=== PATIENT | male | born 1950 | race Caucasian/White ===

== ENCOUNTER 2018-08-27 12:13 | Emergency (ER) | payer OTHER, BC ==
[2018-08-27 12:19] VITALS: TEMP 97.6; BMI 29.2
--- NOTE | 2018-08-27 12:57 | PDOC ---
History of Present Illness - General Chief Complaint: Lightheaded Stated Complaint: DIZZY Time Seen by Provider: 08/27/18 12:51 - History of Present Illness Initial Comments: 08/27/18 14:09 Chief complaint: Unsteadiness of gait History of present illness: Upon awakening this morning, patient felt "dizzy" no denies jamison vertigo. He also noted that he was mildly nauseated and unsteady on his feet, although he did not vomit. Review of systems: Admits nasal congestion and the feeling that he is "getting a cold". Denies earache, tinnitus, ear congestion, or decreased hearing. Denies cough, chest pain, shortness of breath, abdominal pain, vomiting or diarrhea, visual or focal neurologic symptoms. Remainder systems reviewed and found to be negative Past medical history: HI in 2003, followed by a editorial intern, stable cardiac status since then. No stent or CABG. Elevated cholesterol. High blood pressure, although he recently lost 30 pounds by diet and his blood pressure reportedly has normalized. No known diabetes. Social history: Active, drives a school bus, no tobacco, one or 2 glasses of wine every evening, no nonprescription drugs. Walks a mile a day without difficulty Family history: Reviewed and significant for coronary artery disease, otherwise noncontributory Physical exam: Alert and oriented well-developed well-nourished no acute distress at rest. Cheerful and cooperative Afebrile, vital signs normal Head atraumatic. PERRLA 4 mm, fundi benign with sharp disc margins and good central venous pulsations. ENT clear except for mild nasal congestion. No sinus tenderness Neck supple without bruit mass or nodes Lungs clear to P&A full breath sounds bilaterally no wheezes rales or rhonchi CV S1 and S2 distant, regular, without murmur rub or gallop, pulses full and symmetric, no JVD or edema, no bruits Abdomen soft nontender without mass or organomegaly Neurological C2 to 12 intact. Strength full and symmetric. No focal sensory or motor deficits. Cerebellum intact. Gait appears stable and unimpaired Impression: Vague neurological symptoms most consistent with labyrinthitis associated with URI, however, central nervous system or cardiac disease are possibilities Plan: EKG and enzymes, head CT, CBC chemistries, symptomatic treatment and observation. Further treatment depending on results of studies. Past History - Past Medical History Allergies/Adverse Reactions: Allergies Allergy/AdvReac Type Severity Reaction Status Date / Time guaifenesin [From Robitussin] Allergy Verified 08/27/18 12:14 Home Medications: Ambulatory Orders Atorvastatin Ca [Lipitor] 20 mg PO HS 08/27/18 Carvedilol [Coreg] 6.25 mg PO BID 08/27/18 Meclizine HCl 25 mg PO TID PRN #12 tab.chew 08/27/18 Quinapril HCl 0 mg PO DAILY 08/27/18 COPD: No Hypercholesterolemia: Yes - Suicide/Smoking/Psychosocial Hx Smoking History: Former smoker Have you smoked in the past 12 months: No Information on smoking cessation initiated: No Hx Alcohol Use: Yes Drug/Substance Use Hx: No Substance Use Type: Alcohol Cardiac Specific PMH - Complaint Specific PMHX Myocardial Infarction: Yes *Physical Exam - Vital Signs Last Vital Signs Temp Pulse Resp BP Pulse Ox 97.6 F 71 18 106/72 97 08/27/18 12:14 08/27/18 14:36 08/27/18 13:18 08/27/18 14:36 08/27/18 14:36 ED Treatment Course - LABORATORY CBC & Chemistry Diagram: 08/27/18 13:06 08/27/18 13:04 - ADDITIONAL ORDERS Additional order review: Laboratory Results 08/27/18 08/27/18 08/27/18 13:04 13:04 13:04 PT with INR 12.3 INR 1.10 Sodium 135 L Potassium 3.6 Chloride 102 Carbon Dioxide 25 Anion Gap 8 BUN 25 H Creatinine 0.7 Creat Clearance w eGFR > 60 Random Glucose 115 H Calcium 8.8 Total Bilirubin 1.0 AST 33 ALT 42 H Alkaline Phosphatase 68 Creatine Kinase 272 Creatine Kinase Index 4.8 CK-MB (CK-2) 13.3 H Troponin I < 0.03 Total Protein 6.6 Albumin 3.7 08/27/18 13:06 RBC 4.96 MCV 91.3 MCHC 33.3 RDW 12.7 MPV 10.1 Neutrophils % 59.9 Lymphocytes % 26.8 Monocytes % 10.6 H Eosinophils % 2.3 Basophils % 0.4 - RADIOLOGY Radiology Studies Ordered: Category Date Time Status HEAD CT WITHOUT CONTRAST [CT] Stat CT Scan 08/27/18 13:45 Completed CHEST X-RAY PORTABLE* [RAD] Stat Radiology 08/27/18 13:02 Completed - Medications Given in the ED: ED Medications Discontinued Medications Generic Name Dose Route Start Last Admin Trade Name Freq PRN Reason Stop Dose Admin Aspirin 81 mg 08/27/18 13:11 08/27/18 13:18 Asa - PO 08/27/18 13:12 81 mg ONCE ONE Administration Meclizine HCl 25 mg 08/27/18 13:45 08/27/18 13:55 Antivert - PO 08/27/18 13:46 25 mg ONCE ONE Administration Nitroglycerin 0.4 mg 08/27/18 13:11 08/27/18 13:18 Nitrostat - SL 08/27/18 13:12 0.4 mg ONCE ONE Administration Ondansetron HCl 4 mg 08/27/18 13:03 08/27/18 13:13 Zofran Injection IVPB 08/27/18 13:04 4 mg ONCE ONE Administration Medical Decision Making - Medical Decision Making 08/27/18 15:29 EKG reviewed: Normal sinus rhythm 78/m. Right bundle branch block, left anterior fascicular block, possible old inferior wall HI. No interval change as compared to prior EKG dated 05/28/2018 obtained from primary physician. Chest x-ray clear CBC and chemistries without significant abnormalities, including cardiac enzymes. Symptoms resolved completely after administration of meclizine. Patient fully ambulatory, gait stable and unimpaired. No dizziness or vertigo. No chest pain or shortness of breath. Most likely diagnosis is labyrinthitis associated with URI, but in view of cardiac history, patient is instructed to rest, return to ER immediately if further symptoms develop, and to check with primary physician and editorial intern within 2 days. *DC/Admit/Observation/Transfer Diagnosis at time of Disposition: Acute viral labyrinthitis Qualifiers: Laterality: unspecified laterality Qualified Code(s): H83.09 - Labyrinthitis, unspecified ear - Discharge Dispostion Disposition: HOME Condition at time of disposition: Improved Decision to Admit order: No - Prescriptions Prescriptions: Meclizine HCl 25 mg PO TID PRN #12 tab.chew PRN Reason: vertigo, unsteady gait - Referrals Referrals: Jean-Claude Mar MD [Primary Care Provider] - 2 Days - Patient Instructions Printed Discharge Instructions: DI for Labyrinthitis Additional Instructions: If symptoms worsen or additional symptoms develop, return to the hospital immediately Rest and medication until symptoms resolve. - Post Discharge Activity Forms/Work/School Notes: Back to Work
[2018-08-27] MEDS ORDERED: ONDANSETRON 4 MG/2 ML VIAL IVPB ONE (13:03)
[2018-08-27] MEDS ORDERED: ONDANSETRON 4 MG/2 ML VIAL ONE (13:06)
[2018-08-27] MEDS ORDERED: NITROGLYCERIN SUBLINGUAL 1/150 0.4 MG TAB SL ONE (13:11)
[2018-08-27] MEDS ORDERED: ASPIRIN 81 MG CHEWABLE TABLETS PO ONE (13:11)
[2018-08-27] MEDS ORDERED: ASPIRIN 81 MG CHEWABLE TABLETS ONE (13:14)
[2018-08-27] MEDS ORDERED: NITROGLYCERIN SUBLINGUAL 1/150 0.4 MG TAB ONE (13:14)
[2018-08-27 13:25] LABS: INR 1.1 (0.82-1.09); PROTHROMBIN TIME (PATIENT) 12.3 SEC (10.2-13.0)
[2018-08-27 13:30] LABS: ALBUMIN 3.7 g/dl (3.5-5.0); ALK PHOS 68 U/L (32-92); ANION GAP 8 MMOL/L (8-16); BLOOD UREA NITROGEN 25 mg/dl (7-18); CALCIUM 8.8 mg/dl (8.4-10.2); CHLORIDE 102 mmol/L (98-107); CO2 25 mmol/L (22-28); CREATININE 0.7 mg/dl (0.6-1.3); GLUCOSE,RANDOM 115 mg/dl (74-106); POTASSIUM 3.6 mmol/L (3.5-5.1); SGOT/AST 33 U/L (10-42); SGPT/ALT 42 U/L (10-40); SODIUM 135 mmol/L (136-145); TOT PROT 6.6 g/dl (6.4-8.3)
[2018-08-27 13:33] LABS: BASO % 0.4 % (0-2.0); EOS % 2.3 % (0-4.5); HEMATOCRIT 45.3 % (35.4-49); HEMOGLOBIN 15.1 GM/dl (11.7-16.9); LYMPH % 26.8 % (8-40); MCH 30.4 pg (25.7-33.7); MCHC 33.3 g/dl (32.0-35.9); MEAN CELL VOLUME 91.3 fl (80-96); MEAN PLT VOLUME 10.1 fl (7.5-11.1); MONO % 10.6 % (3.8-10.2); NEUT % 59.9 % (42.8-82.8); PLATELET COUNT 163 K/MM3 (134-434); RBC 4.96 M/mm3 (4.00-5.60); RDW 12.7 % (11.9-15.9)
[2018-08-27] MEDS ORDERED: MECLIZINE HCL 25 MG TABLET (FP) PO ONE (13:45)
[2018-08-27] MEDS ORDERED: MECLIZINE HCL 25 MG TABLET (FP) ONE (13:52)
[2018-08-27 14:37] VITALS: BP 106/72; PULSE 71
--- NOTE | 2018-08-28 11:54 | EKG ---
Test Reason : Blood Pressure : / mmHG Vent. Rate : 076 BPM Atrial Rate : 076 BPM P-R Int : 184 ms QRS Dur : 144 ms QT Int : 432 ms P-R-T Axes : 054 -52 011 degrees QTc Int : 486 ms NORMAL SINUS RHYTHM RIGHT BUNDLE BRANCH BLOCK LEFT ANTERIOR FASCICULAR BLOCK BIFASCICULAR BLOCK CANNOT RULE OUT INFERIOR INFARCT (CITED ON OR BEFORE 27-AUG-2018) ABNORMAL ECG WHEN COMPARED WITH ECG OF 27-AUG-2018 12:23, NO SIGNIFICANT CHANGE WAS FOUND Confirmed by YASMEEN ROCHA MD ([id number]) on 08/28/2018 11:54:42 AM Referred By: YESSENIA SERNA Confirmed By:YASMEEN ROCHA MD
== END 2018-08-27 15:11 | disposition home or self-care (01) ==
LOC: FER 12:13
PROC: 3E033GC Introduction of Other Therapeutic Substance into Peripheral Vein, Percutaneous Approach (ICD-10-PCS; principal; 2018-08-27)
DX: H83.09 Labyrinthitis, unspecified ear (principal); Z87.891 Personal history of nicotine dependence
CPT/HCPCS: 36415; 70450-TC; 71045-TC-FY; 80053; 82550; 82553; 84484; 85025; 85610; 93005; 96374; 99283-25

== ENCOUNTER 2019-10-22 06:08 | Day surgery (SDC) | payer OTHER ==
[2019-10-22] MEDS ORDERED: LIDOCAINE HCL 1%, 10 MG/ML (20ML VIAL) ONE (07:17)
[2019-10-22] MEDS ORDERED: PROPOFOL 20 ML ONE (07:27)
[2019-10-22] MEDS ORDERED: MIDAZOLAM HCL 2 MG/2 ML SINGLE DOSE VIAL ONE (07:27)
[2019-10-22] MEDS ORDERED: DEXAMETHASONE SOD PHOSPHATE 4 MG/1 ML VIAL ONE (07:28)
[2019-10-22] MEDS ORDERED: ceFAZolin SODIUM 1 GM VIAL ONE (07:28)
[2019-10-22 07:58] VITALS: BMI 29.5
--- NOTE | 2019-10-22 08:04 | HP ---
[facility] - Chief Complaint Chief Complaint: right hand pain - Past Medical History Allergies/Adverse Reactions: Allergies Allergy/AdvReac Type Severity Reaction Status Date / Time guaifenesin [From Keatonsin] Allergy Verified 10/22/19 06:41 - Current Medications Current Medications: Home Medications Medication Instructions Recorded Atorvastatin Ca [Lipitor] 20 mg PO HS 08/27/18 Carvedilol [Coreg] 12.5 mg PO BID 08/27/18 Quinapril HCl 40 mg PO DAILY 08/27/18 Ascorbic Acid [Vitamin C Oral 500 mg PO DAILY 10/21/19 Solution -] Aspirin 81 mg PO DAILY 10/21/19 Cholecalciferol (Vitamin D3) 1,000 unit PO DAILY 10/21/19 [Vitamin D3 -] Vitamin E 400 unit PO DAILY 10/21/19 [facility]ellite Physical Exam - Physical Examination Vital Signs: Vital Signs Period Temp Pulse Resp BP Sys/Salas Pulse Ox Last 24 Hr 98.3 F 84 16 132/92 96 General Appearance: Well Nourished, Well Developed, Alert & Oriented x3 ENT: Clear Lung: Normal air movement Extremities: Other (right hand- + tinels, + phalens, EMG + cts) Neurological: Intact, Alert, Oriented [facility] Impression/Plan - Impression/Plan Impression: right cts Operative Procedure: right ctr Date to be Performed: 10/22/19
[2019-10-22] MEDS ORDERED: LIDOCAINE HCL 1%, 10 MG/ML (20ML VIAL) NR ONE ×2 (08:32)
[2019-10-22] MEDS ORDERED: BUPIVACAINE HCL/PF 0.5% (5 MG/ML) 30 ML VIAL IJ ONE ×2 (08:32)
--- NOTE | 2019-10-22 08:59 | OP ---
Operative Note - Note: Operative Date: 10/22/19 Pre-Operative Diagnosis: right CTS Operation: right CTR, tenosynovectomy Post-Operative Diagnosis: Same as Pre-op Surgeon: Rd Banuelos Anesthesiologist/WATERPROOF BAG CUTTING MACHINE OPERATOR: Denis Carney Anesthesia: Local, MAC Specimens Removed: tenosynovium Estimated Blood Loss (mls): 0 Drains, Volume Out (mls): 0 Blood Volume Replaced (mls): 0 Fluid Volume Replaced (mls): 500 Operative Report Dictated: Yes
[2019-10-22 09:18] VITALS: TEMP 97.3
--- NOTE | 2019-10-22 10:05 | OP ---
DATE OF OPERATION: 10/22/2019 PREOPERATIVE DIAGNOSIS: Right carpal tunnel syndrome and tenosynovitis. POSTOPERATIVE DIAGNOSIS: Right carpal tunnel syndrome and tenosynovitis. OPERATION: Right carpal tunnel release with flexor tenosynovectomy. SURGEON: Rd Banuelos M.D. ASSISTANTS: None. ANESTHESIOLOGIST: Bryon Temple MD ANESTHESIA: MAC, local injection of 15 mL of 0.5% Marcaine and 1% lidocaine mix. DRAINS: None. COMPLICATIONS: None. SPECIMENS: Tenosynovium. BLOOD LOSS: None. BLOOD GIVEN: None. FLUID REPLACEMENT: 500 mL. INDICATIONS: This patient is a 69-year-old male with significant stage right carpal tunnel syndrome. After understanding the potential risks, complications, alternatives and benefits of surgery versus nonsurgical treatment, the patient elected to undergo this procedure. He understands he will not get complete relief of his symptoms. He has significant end-stage thenar atrophy. He will have some weakness. The atrophy will remain and he will have some permanent nerve damage, including continuation of some of his symptoms, likely a continuation of a significant portion of his numbness. That being said, he has elected to go forward with this procedure. DESCRIPTION OF PROCEDURE: The patient was brought to the operating room, peripheral IV placed and IV sedation was given. IV Ancef 2 g was given. MAC anesthesia was induced. A tourniquet was applied to the right upper arm. The entire case was done under 3.8 loupe magnification. The right upper extremity was prepped and draped in sterile fashion, elevated, exsanguinated with an Esmarch bandage and the tourniquet inflated to 250 mmHg. A slightly curvilinear incision was marked over the carpal tunnel, and 10 mL of 0.5% Marcaine/1% lidocaine mix was injected in and around the surgical incision. The incision was made with a No. 15 scalpel blade. Subcutaneous hemostasis was achieved with the bipolar cautery. Dissection was done with Littler scissors. Small [place] retractors were placed into the wound. The superficial palmar fascia was identified and incised with a deep No. 15 scalpel blade. Additional hemostasis was achieved. Small Weitlaner retractors replaced the [place] retractors. Additional dissection was done with the Littler scissors and the deep No. 15 scalpel blade was utilized to cut down through the transverse carpal ligament, exposing the median nerve and the flexor tendon contents of the carpal tunnel. A Kiya retractor was placed distally. The distal extent of the release was completed. The Kiya was then moved proximally and the proximal forearm fascia was released under direct visualization. Using the Littler scissors, I dissected the median nerve free from the fascia. The area was then irrigated. I used my finger for blunt dissection to complete the release and to feel if there were any other points of compression or bands that were left in place. There were none. The release was complete. Next, I used curved Iris scissors to do a limited epineurotomy, opening up the epineurium around the median nerve. There was a lot of significant hypertrophic tenosynovium. The median nerve was gently retracted bluntly with the blunt Ragnell retractor. This significant hypertrophic tenosynovium was visualized over the FDS and FDP tendons of the index, middle, ring and little fingers. A partial tenosynovectomy was then performed off the FDS tendons of the index, middle, ring and little fingers. The specimen was passed off the field. Next, a partial tenosynovectomy was done off the flexor digitorum profundus and FPL tendons of the thumb, index, middle, ring and little fingers. The floor of the carpal tunnel was examined. There were no abnormal masses or ganglion cysts. The volar wrist capsule was directly visualized. It seemed to be intact and otherwise looked good. Additional dissection was done with my finger to make sure there were no other points of compression, of which there were none. The nerves and the tendons were then reexamined. They looked good and released. There were no points of compression. There was free tendon gliding. Another 5 mL of Marcaine/lidocaine mix was infused into the carpal tunnel. Closure was done with 4-0 undyed Vicryl in the deep dermal layer, and final skin reapproximation was done with a row of alternating horizontal mattress and single interrupted 4-0 nylon sutures. The area was washed and dried, covered with Xeroform gauze, 4 x 4 gauze, fluffs between the fingers, and Webril. A 3-inch volar plaster splint was applied, wrapped with Adina and Coban. The tourniquet was taken down after a total tourniquet time of 18 minutes. There were no complications during the case. The patient tolerated the procedure quite well and was brought to the ambulatory recovery room in stable condition. Chon [id number]
[2019-10-22] MEDS ORDERED: oxyCODONE HCL 5 MG TABLET PO PRN ×2 (10:48)
[2019-10-22] MEDS ORDERED: ONDANSETRON 4 MG/2 ML VIAL IVPUSH PRN (10:48)
[2019-10-22] MEDS ORDERED: ACETAMINOPHEN 325 MG TABLET (FP) PO PRN (10:48)
[2019-10-22] MEDS ORDERED: LACTATED RINGERS SOLUTION 1,000 ML IV SCH (11:00)
--- NOTE | 2019-10-22 11:49 | EKG ---
Test Reason : Blood Pressure : / mmHG Vent. Rate : 079 BPM Atrial Rate : 079 BPM P-R Int : 176 ms QRS Dur : 146 ms QT Int : 420 ms P-R-T Axes : 054 -52 008 degrees QTc Int : 481 ms SINUS RHYTHM WITH PREMATURE ATRIAL COMPLEXES RIGHT BUNDLE BRANCH BLOCK LEFT ANTERIOR FASCICULAR BLOCK BIFASCICULAR BLOCK CANNOT RULE OUT INFERIOR INFARCT (CITED ON OR BEFORE 27-AUG-2018) ABNORMAL ECG WHEN COMPARED WITH ECG OF 27-AUG-2018 12:24, PREMATURE ATRIAL COMPLEXES ARE NOW PRESENT Confirmed by YASMEEN ROCHA MD ([id number]) on 10/22/2019 11:49:10 AM Referred By: Confirmed By:YASMEEN ROCHA MD
[2019-10-22 11:51] VITALS: BP 137/95; PULSE 78
--- NOTE | 2019-10-23 15:59 | PATH ---
Surgical Pathology Report Patient Name: ABDIRASHID GALVAN Med. Rec. #: [id number] /Age/Gender: 1950 (Age: 69) / M Account: [id number] Location: [facility] Taken: 10/22/2019 Received: 10/22/2019 Reported: 10/23/2019 Physicians: Winsome Horton Specimen(s) Received RIGHT HAND TENOSYNOVIUM Clinical History Right carpal tunnel Final Diagnosis TENOSYNOVIUM, HAND, RIGHT, CARPAL TUNNEL RELEASE: BENIGN DENSE CONNECTIVE TISSUE. Electronically Signed Guerda Mena M.D. Gross Description Received in formalin labeled "tenosynovium right hand," is a 2.5 x 2.3 x 0.3 cm aggregate of rios-yellow portions of soft tissue, consistent with tenosynovium. This specimen is submitted in toto in one cassette. DL/10/22/2019 saudi/10/22/2019
== END 2019-10-22 11:00 | disposition home or self-care (01) ==
LOC: JASU-SURG 06:08
PROVIDERS: ATTEND Orthopaedic Surgery
PROC: 0LB70ZZ Excision of Right Hand Tendon, Open Approach (ICD-10-PCS; 2019-10-22)
PROC: 0LB70ZZ Excision of Right Hand Tendon, Open Approach (ICD-10-PCS; 2019-10-22)
PROC: 0LB70ZZ Excision of Right Hand Tendon, Open Approach (ICD-10-PCS; 2019-10-22)
PROC: 0LB70ZZ Excision of Right Hand Tendon, Open Approach (ICD-10-PCS; 2019-10-22)
PROC: 01N50ZZ Release Median Nerve, Open Approach (ICD-10-PCS; principal; 2019-10-22 08:00)
DX: G56.01 Carpal tunnel syndrome, right upper limb (principal); M65.9 Synovitis and tenosynovitis, unspecified
CPT/HCPCS: 88304-TC; 93005; 93010

== ENCOUNTER 2022-07-16 04:05 | Day surgery (SDC) | payer OTHER ==
[2022-07-12 15:23] VITALS: BMI 29.2
[2022-07-16] MEDS ORDERED: MIDAZOLAM HCL 2 MG/2 ML SINGLE DOSE VIAL ONE (08:47)
[2022-07-16] MEDS ORDERED: PROPOFOL 20 ML ONE ×2 (08:47→09:31)
[2022-07-16] MEDS ORDERED: ceFAZolin SODIUM 1 GM VIAL IVPB ONE ×2 (09:19→09:20)
[2022-07-16] MEDS ORDERED: LIDOCAINE HCL 1%, 10 MG/ML (20ML VIAL) NR ONE ×2 (09:20→09:32)
[2022-07-16] MEDS ORDERED: BUPIVACAINE HCL/PF 0.5% (5MG/ML) 10 ML VIAL IJ ONE ×2 (09:20→09:32)
[2022-07-16 10:16] VITALS: RESP 18
[2022-07-16 10:41] VITALS: BP 132/73; PULSE 59; TEMP 97.3
[2022-07-16] MEDS ORDERED: ONDANSETRON 4 MG/2 ML VIAL IVPUSH PRN (10:48)
[2022-07-16] MEDS ORDERED: oxyCODONE HCL 5 MG TABLET PO PRN (10:48)
[2022-07-16] MEDS ORDERED: LACTATED RINGERS SOLUTION 1,000 ML IV SCH (11:00)
== END 2022-07-16 11:30 | disposition home or self-care (01) ==
LOC: JASU-SURG 04:05
PROVIDERS: ATTEND Orthopaedic Surgery
PROC: 0LB60ZZ Excision of Left Lower Arm and Wrist Tendon, Open Approach (ICD-10-PCS; 2022-07-16)
PROC: 01N50ZZ Release Median Nerve, Open Approach (ICD-10-PCS; principal; 2022-07-16 09:00)
DX: G56.02 Carpal tunnel syndrome, left upper limb (principal); M65.9 Synovitis and tenosynovitis, unspecified
CPT/HCPCS: 88304-TC